=== PATIENT | male | born 1960 | race Native Hawaiian/Other Pacific Islander ===

== ENCOUNTER 2018-11-05 14:43 | Outpatient (CLI) | payer OTHER ==
[2018-11-05] MEDS ORDERED: GABA400C2 PO (22:48)
[2018-11-05] MEDS ORDERED: OXYCODONE30 MG PO (22:49)
== END 2018-11-05 15:00 | disposition short-term general hospital (02) ==
LOC: AMB 14:43
DX: R41.82 Altered mental status, unspecified (principal); M54.89 Other dorsalgia; R50.9 Fever, unspecified
CPT/HCPCS: A0425; A0427

== ENCOUNTER 2018-11-05 15:26 | Inpatient (IN) | payer OTHER ==
[2018-11-05] VITALS (13 sets, daily range): BP systolic 98–160; BP diastolic 62–124; TEMP 99.5–102.8; Ht 175.3 cm; Wt 84.8 kg
[~2018-11-05] VITALS: Ht 175.3 cm; Wt 84.8 kg
[2018-11-05 15:43] LABS: PLATELET COUNT 222 K/uL (142-355)
[2018-11-05 15:46] LABS: POTASSIUM 3.3 mmol/L (3.6-5.2)
[2018-11-05] MEDS ORDERED: GABA400C2 PO (22:48)
[2018-11-05] MEDS ORDERED: OXYCODONE30 MG PO (22:49)
[2018-11-05 23:34] LABS: PLATELET COUNT 198 K/uL (142-355)
[2018-11-05 23:46] LABS: POTASSIUM 3.1 mmol/L (3.6-5.2)
[2018-11-06] VITALS (23 sets, daily range): BP systolic 118–156; BP diastolic 57–91; TEMP 99.3–100.1
[2018-11-06 05:40] LABS: PLATELET COUNT 184 K/uL (142-355)
[2018-11-07] VITALS (8 sets, daily range): BP systolic 125–174; BP diastolic 61–83; TEMP 99–100.3
[2018-11-07 05:30] LABS: PLATELET COUNT 162 K/uL (142-355)
[2018-11-07 06:23] LABS: POTASSIUM 3.5 mmol/L (3.6-5.2)
== END 2018-11-07 09:37 | disposition short-term general hospital (02) | DRG 872 ==
LOC: ED 15:26 → ICU 20:29
PROVIDERS: Emergency Medicine; Family Medicine; ADMIT Internal Medicine
DX: A41.01 Sepsis due to Methicillin susceptible Staphylococcus aureus (principal); L03.113 Cellulitis of right upper limb; D72.828 Other elevated white blood cell count; E87.2 Acidosis; R00.0 Tachycardia, unspecified; R06.82 Tachypnea, not elsewhere classified; K72.90 Hepatic failure, unspecified without coma; M62.82 Rhabdomyolysis; R62.7 Adult failure to thrive; E87.6 Hypokalemia; E86.0 Dehydration; E87.1 Hypo-osmolality and hyponatremia; D64.89 Other specified anemias
CPT/HCPCS: 36600; 51702; 80053; 80307; 80320; 81000; 82140; 82150; 82550; 82553; 82805; 83605; 83690; 84153; 84484; 84550; 85007; 85027; 85651; 87040; 87070; 87077; 87086; 87088; 87185; 87186; 87205; 93005; 94760; 96360; 96361; 96365; 99285; J0696; J1450; J1650; J1956; J2060; J2270; J3370; J3480; Q9963

== ENCOUNTER 2020-01-25 13:53 | Inpatient (IN) | payer OTHER ==
[~2020-01-25] VITALS: Ht 175.3 cm; Wt 73.5 kg
[2020-01-25] VITALS (7 sets, daily range): BP systolic 118–142; BP diastolic 7–83; TEMP 98.8–99.4; Ht 175.3 cm; Wt 73.5 kg
[~2020-01-25 13:53] MED LIST: GABA400C2 PO; OXYCODONE30 MG PO
[2020-01-25] MEDS ORDERED: PRINIVIL5 MG PO (14:19)
[2020-01-25 14:35] LABS: PLATELET COUNT 419 K/uL (142-355)
[2020-01-25 14:38] LABS: POTASSIUM 3.4 mmol/L (3.6-5.2); SODIUM 137 mmol/L (136-145)
[2020-01-25] MEDS ORDERED: LISI20TA11 PO (18:01)
[2020-01-25] MEDS ORDERED: CYCL10TA35 PO (18:04)
[2020-01-26] VITALS: BP 123/61; TEMP 98.6
[2020-01-26 04:00] VITALS: BP 115/67; TEMP 98.9
[2020-01-26 08:00] VITALS: BP 117/62; TEMP 100.3
[2020-01-26 09:49] LABS: PLATELET COUNT 334 K/uL (142-355)
[2020-01-26 12:00] VITALS: BP 101/50; TEMP 99.2
[2020-01-26 16:08] VITALS: BP 130/58; TEMP 99.4
[2020-01-26 20:00] VITALS: BP 126/59; TEMP 102.9
[2020-01-27] VITALS (7 sets, daily range): BP systolic 74–122; BP diastolic 41–62; TEMP 97.7–101.5
[2020-01-27 07:12] LABS: PLATELET COUNT 305 K/uL (142-355)
[2020-01-27 07:32] LABS: POTASSIUM 3.8 mmol/L (3.6-5.2)
[2020-01-28 04:00] VITALS: BP 114/49; TEMP 98.5
[2020-01-28 05:16] LABS: PLATELET COUNT 309 K/uL (142-355)
[2020-01-28 05:30] LABS: POTASSIUM 4.9 mmol/L (3.6-5.2)
[2020-01-28 08:00] VITALS: BP 90/41; TEMP 98.9
[2020-01-28 12:00] VITALS: BP 106/63; TEMP 97.6
[2020-01-28 16:00] VITALS: BP 118/58; TEMP 99.2
[2020-01-28 19:57] VITALS: BP 135/57; BP 99/50; TEMP 98.8
[2020-01-29] VITALS: BP 131/55; TEMP 98.9
[2020-01-29 04:00] VITALS: BP 125/67; TEMP 99
[2020-01-29 05:24] LABS: PLATELET COUNT 323 K/uL (142-355)
[2020-01-29 05:27] LABS: POTASSIUM 4.5 mmol/L (3.6-5.2)
[2020-01-29 08:00] VITALS: BP 114/51; TEMP 99
[2020-01-29 12:00] VITALS: BP 120/58; TEMP 98.3
== END 2020-01-29 16:30 | disposition home or self-care (01) | DRG 313 ==
LOC: ED 13:53 → MED/SURG 15:46
PROVIDERS: Internal Medicine Endocrinology, Diabetes & Metabolism; ADMIT Hospitalist
DX: R07.89 Other chest pain (principal); E87.6 Hypokalemia; G89.4 Chronic pain syndrome; I10 Essential (primary) hypertension; R50.9 Fever, unspecified; K59.09 Other constipation; R31.29 Other microscopic hematuria
CPT/HCPCS: 36415; 80048; 80053; 81000; 82550; 83880; 84484; 85027; 85610; 85730; 87635; 93005; 96365; 96372; 96374; 99284; J1650; J1885; J1956; U0003

== ENCOUNTER 2020-05-22 20:26 | Inpatient (IN) | payer OTHER ==
[2020-05-22] VITALS (10 sets, daily range): BP systolic 80–202; BP diastolic 31–76; TEMP 99–99.2; Ht 177.8 cm; Wt 71.9 kg
[~2020-05-22] VITALS: Ht 177.8 cm; Wt 71.9 kg
[~2020-05-22 20:26] MED LIST changes: +CYCL10TA35 PO; +LISI20TA11 PO; +PRINIVIL5 MG PO
[2020-05-22 20:51] LABS: PLATELET COUNT 643 K/uL (142-355)
[2020-05-22 21:17] LABS: PARTIAL THROMBOPLASTIN TIME 25.8 SECONDS (24.5-33.6)
[2020-05-22 21:21] LABS: POTASSIUM 4.2 mmol/L (3.6-5.2)
[2020-05-23] VITALS (62 sets, daily range): BP systolic 89–176; BP diastolic 40–521; TEMP 97.4–99
[2020-05-23 06:37] LABS: PLATELET COUNT 405 K/uL (142-355)
[2020-05-23 06:58] LABS: POTASSIUM 4.9 mmol/L (3.6-5.2)
[2020-05-23 08:30] LABS: PARTIAL THROMBOPLASTIN TIME 27.4 SECONDS (24.5-33.6)
[2020-05-24] VITALS (73 sets, daily range): BP systolic 100–143; BP diastolic 39–57; TEMP 97.6–99.2
[2020-05-24 06:16] LABS: PLATELET COUNT 531 K/uL (142-355)
[2020-05-24 06:24] LABS: POTASSIUM 4.2 mmol/L (3.6-5.2)
[2020-05-25] VITALS (60 sets, daily range): BP systolic 97–157; BP diastolic 40–81; TEMP 97.9–99.1
[2020-05-25 06:02] LABS: PLATELET COUNT 407 K/uL (142-355)
[2020-05-25 06:17] LABS: POTASSIUM 4.6 mmol/L (3.6-5.2)
[2020-05-26] VITALS (68 sets, daily range): BP systolic 90–155; BP diastolic 36–71; TEMP 97.2–98.4
[2020-05-26 04:45] LABS: PLATELET COUNT 337 K/uL (142-355)
[2020-05-26 05:15] LABS: POTASSIUM 5.2 mmol/L (3.6-5.2)
[2020-05-27] VITALS (29 sets, daily range): BP systolic 93–195; BP diastolic 35–83; TEMP 98–99.2
[2020-05-27 05:20] LABS: PLATELET COUNT 415 K/uL (142-355)
[2020-05-27 05:23] LABS: POTASSIUM 5.5 mmol/L (3.6-5.2)
[2020-05-28] VITALS (55 sets, daily range): BP systolic 92–186; BP diastolic 34–73; TEMP 97.6–98.6
[2020-05-28 06:02] LABS: PLATELET COUNT 329 K/uL (142-355)
[2020-05-28 06:24] LABS: POTASSIUM 4.6 mmol/L (3.6-5.2)
[2020-05-29] VITALS (51 sets, daily range): BP systolic 89–156; BP diastolic 34–68; TEMP 97.6–99.4
[2020-05-29 07:10] LABS: PLATELET COUNT 311 K/uL (142-355)
[2020-05-29 07:33] LABS: POTASSIUM 5.3 mmol/L (3.6-5.2)
[2020-05-30] VITALS (33 sets, daily range): BP systolic 93–1005; BP diastolic 34–62; TEMP 97.4–99.3
[2020-05-30 06:54] LABS: PLATELET COUNT 294 K/uL (142-355)
[2020-05-30 07:15] LABS: POTASSIUM 4.3 mmol/L (3.6-5.2)
[2020-05-31] VITALS (7 sets, daily range): BP systolic 104–147; BP diastolic 40–56; TEMP 97.8–99.1
[2020-05-31 07:15] LABS: POTASSIUM 3.5 mmol/L (3.6-5.2)
[2020-05-31 07:26] LABS: PLATELET COUNT 291 K/uL (142-355)
[2020-06-01] VITALS: BP 111/46; TEMP 98.5
[2020-06-01 03:46] VITALS: BP 131/41; TEMP 98.3
[2020-06-01 07:07] LABS: PLATELET COUNT 247 K/uL (142-355)
[2020-06-01 07:22] LABS: POTASSIUM 4.1 mmol/L (3.6-5.2)
[2020-06-01 08:00] VITALS: BP 128/49; TEMP 97.9
[2020-06-01 12:00] VITALS: BP 115/62; TEMP 98.5
[2020-06-01 16:00] VITALS: BP 122/46; TEMP 98.3
[2020-06-01 20:07] VITALS: BP 122/53; TEMP 97.6
[2020-06-02] VITALS: BP 114/50; TEMP 97.8
[2020-06-02 04:00] VITALS: BP 127/46; TEMP 98.2
[2020-06-02 05:27] LABS: PLATELET COUNT 220 K/uL (142-355)
[2020-06-02 05:30] LABS: POTASSIUM 4.5 mmol/L (3.6-5.2)
[2020-06-02 08:00] VITALS: BP 128/52; TEMP 98.8
[2020-06-02 12:00] VITALS: BP 126/48; TEMP 97.9
[2020-06-02 16:00] VITALS: BP 106/75; TEMP 98.1
== END 2020-06-02 18:10 | disposition short-term general hospital (02) | DRG 207 ==
LOC: ED 20:38 → ICU 22:00 → UNDODEPER 05-23 23:05 → PCU 05-24 14:43 → ICU 05-26 16:53 → MED/SURG 05-31 02:18
PROVIDERS: Internal Medicine; ADMIT Hospitalist; ATTEND Internal Medicine Endocrinology, Diabetes & Metabolism
PROC: 5A1955Z Respiratory Ventilation, Greater than 96 Consecutive Hours (ICD-10-PCS; principal; 2020-05-22)
PROC: 0BH17EZ Insertion of Endotracheal Airway into Trachea, Via Natural or Artificial Opening (ICD-10-PCS; 2020-05-22)
PROC: 30233N1 Transfusion of Nonautologous Red Blood Cells into Peripheral Vein, Percutaneous Approach (ICD-10-PCS; 2020-05-29)
PROC: 30233N1 Transfusion of Nonautologous Red Blood Cells into Peripheral Vein, Percutaneous Approach (ICD-10-PCS; 2020-05-30)
DX: J96.01 Acute respiratory failure with hypoxia (principal); A41.89 Other specified sepsis; I21.4 Non-ST elevation (NSTEMI) myocardial infarction; D64.89 Other specified anemias; J15.211 Pneumonia due to Methicillin susceptible Staphylococcus aureus
CPT/HCPCS: 36415; 36600; 51702; 80053; 82550; 82607; 82728; 82746; 82805; 83540; 83550; 83605; 83880; 84478; 84484; 85007; 85014; 85018; 85027; 85610; 85730; 86850; 86900; 86901; 86922; 87040; 87070; 87077; 87185; 87186; 87205; 87502; 87635; 87651; 90732; 93005; 94002; 94003; 94640; 94664; 94760; 96360; 96361; 96365; 96368; 96375; 99285; C1768; J0132; J0330; J0456; J1100; J1650; J1815; J1940; J1956; J2020; J2060; J2250; J2405; J2704; J3490; P9016; U0003

== ENCOUNTER 2021-02-19 14:30 | Observation (INO) | payer OTHER ==
[2021-02-19] VITALS (10 sets, daily range): BP systolic 94–121; BP diastolic 56–91; TEMP 97.5–98.2; Ht 172.7 cm; Wt 75.4 kg
[~2021-02-19] VITALS: Ht 172.7 cm; Wt 75.4 kg
--- NOTE | 2021-02-19 00:38 | NUR ---
PT AWAKE WATCHING TV WITH NO ACUTE DISTRESS NOTED, REPS RATE NONLABORED, ON ROOM AIR, URINAL WITHIN PT'S REACH, TELEMETRY IN USE WITH TACHYCARDIA NOTED,WILL MONITOR CLOSELY.
--- NOTE | 2021-02-19 00:39 | NUR ---
PREVIOUS NOTE CHARTED WRONG DATE AND TIME.... CORRECT DATE IS AT 0038.
[2021-02-19 15:07] LABS: PLATELET COUNT 346 K/uL (142-355)
[2021-02-19 15:09] LABS: POTASSIUM 4.8 mmol/L (3.6-5.2); SODIUM 138 mmol/L (136-145)
[2021-02-19 15:16] LABS: PARTIAL THROMBOPLASTIN TIME 25.6 SECONDS (24.5-33.6)
[2021-02-19] MEDS ORDERED: LIPITOR20 MG PO (19:14)
[2021-02-19] MEDS ORDERED: LISI5TAB10 PO (19:14)
[2021-02-19] MEDS ORDERED: METO100T37 PO (19:16)
[2021-02-19] MEDS ORDERED: AMOXICILLIN250 M2 PO (19:18)
[2021-02-19] MEDS ORDERED: ASPIRIN 81 LOW81 MG PO (19:20)
--- NOTE | 2021-02-19 21:55 | NUR ---
PT AWAKE WATCHING TV WITH NO S/S OF DISTRESS NOTED, TELEMETRY IN USE WITH TACHYCARDIA NOTED 120-140 PT STATES HE FEELS FINE, RESP RATE NONLABORED, ON ROOM AIR, 20G IV LOCK INTACT TO R AC AND IV 20G INTACT TO R HAND WITH NS AT 125ML/HR. GAVE NIGHTLY MEDICATIONS WITH NO PROBLEMS, PT VERY TALKATIVE WITH STAFF AND KIDDING AROUND TELLING JOKES. WILL MONITOR, RAILS UP, BED IN LOW POSITION, CALL LIGHT IN REACH.
[2021-02-20] VITALS: BP 149/74; TEMP 98.2
--- NOTE | 2021-02-20 01:13 | NUR ---
RESTING ON L SIDE IN BED WITH EYES CLOSED, NO S/S OF PAIN OR DISTRESS NOTED, RESP RATE NONLABORED, TELEMETRY IN USE WITH HEART RATE OF STILL WAITING ON PHARM-D TO PROFILE DOSE OF CARDIZEM AND AMOXICILLIN THAT WAS ORDERED AND FAXED AROUND 0025, BOTH IV SITES INTACT AND NS INFUSING AT 125ML/HR, PT AROUSES BRIEFLY AND DENIES ANY NEEDS, RAILS UP, BED IN LOW POSITION.
--- NOTE | 2021-02-20 01:45 | NUR ---
PT RESTING ON L SIDE WITH EYES CLOSED, AROUSES AND DENIES ANY PROBLEMS AT THIS TIME, RESP RATE NONLABORED, IV SITES INTACT AND NS INFUSING AT 125ML/HR. GAVE CARDIZEM 120MG PO AND AMOXICILLIN 500 MG PO BOTH PER NEW ORDER. URINAL EMPTIED AT THIS TIME WITH 625ML CLEAR LIGHT YELLOW URINE NOTED. TELEMETRY IN USE WITH TACHYCARDIA NOTED, WILL MONITOR,RAILS UP, BED IN LOW POSITION, CALL LIGHT IN REACH.
--- NOTE | 2021-02-20 03:00 | NUR ---
PT RESTING IN BED WITH EYES CLOSED ON HIS SIDE WITH NO S/S OF PAIN OR DISTRESS NOTED, IV SITES INTACT AND NS INFUSING AT 125ML/HR, ON ROOM AIR, NOTE HEART RATE HAS NOW DECREASED TO 100, WILL MONITOR, RAILS UP, BED IN LOW POSIITON, CALL LIGHT IN REACH.
[2021-02-20 04:00] VITALS: BP 105/72; TEMP 97.7
--- NOTE | 2021-02-20 05:00 | NUR ---
CALL LIGHT ANSWERED PT NEEDS HIS URINAL EMPTIED. PROPOSAL CONSULTANT IN ROOM PT STATE THAT HE FEELS DIZZY FOR A FEW SECONDS AND THEN FEELS OKAY AGAIN. STATES THIS JUST STARTED. NO S/S OF DISTRESS BUT NOTE ON TELEMETRY PT'S HEART RATE GOES INTO BRADYCARDIA 30-40s THEN RATE GOES BACK UP TO 60-70s. PT DENIES ANY OTHER S/S AND IS ALERT AND ORIENTED EATING A SNACK OF CEREAL. PT TALKATIVE WITH PROPOSAL CONSULTANT. CONTACTED DR. CAMPBELL IN ER SHOWED HIM TELEMETRY STRIP AND CURRENT PT STATUS. NEW VERBAL ORDER FOR 1 LITER BOLUS OF NS AND HOLD B/P MEDS. ORDER R&V DR. CAMPBELL/LIN PRITCHARD RN.
--- NOTE | 2021-02-20 05:06 | NUR ---
CURRENT BAG OF NS INCREASED TO 999ML/HR PER NEW ORDER FOR 1 LITER BOLUS. PT REMAINS AWAKE AND ORIENTED STILL GETS DIZZY AT TIMES, WILL CONTINUE TO MONITOR CLOSELY, RAILS UP, BED IN LOW POSITION, CALL LIGHT IN REACH.
--- NOTE | 2021-02-20 06:10 | NUR ---
PT AWAKE SITTING UP ON SIDE OF BED EATING A SNACK WITH NO DISTRESS NOTED, DENIES ANY NEEDS OR PROBLEMS AT THIS TIME, STATES HIS HEADACHE HAS DECREASED TO A 4 ON SCALE, REMAINS GLENDY WITH NO MORE DIZZINESS PT STATES. WILL MONITOR RAILS UP, BED IN LOW POSITION, IV SITES INTACT NS ONGOING AT 125.
[2021-02-20 08:00] VITALS: BP 92/57; TEMP 98.1
--- NOTE | 2021-02-20 11:25 | NUR ---
PATIENT AGITATED AND REPORTS HE HAS NOT RECEIVED HIS ROXICODONES IN OVER 24 HOURS AND DEMANDING TO RECEIVE SAME OR LEAVE AMA. DR. LOZANO NOTIFIED OF SAME, NO NEW ORDERS RECEIVED AT THIS TIME.
[2021-02-20 12:00] VITALS: BP 122/96; TEMP 98
--- NOTE | 2021-02-20 15:45 | NUR ---
PATIENT CONTINUES TO THREATEN TO LEAVE AMA IF HE DOES NOT RECEIVE HIS ROXICODONES, REPORTED SAME TO DR. LOZANO. PHYSICIAN ADVISED PATIENT IS UNABLE TO RECEIVE HOME MEDICATION ROXICODONES DUE TO LOW BLOOD PRESSURE AND LOW HEART RATE. DR. LOZANO DISCUSSED SAME WITH PATIENT.
--- NOTE | 2021-02-20 16:05 | NUR ---
PATIENT REFUSED LOVENOX SCHEDULED FOR 1500 AND 1600 VITALS AND CONTINUES TO DEMAND TO RECEIVE HOME MEDICATION ROXICODONES OR HE WILL LEAVE AMA, DR. LOZANO MADE AWARE OF SAME.
--- NOTE | 2021-02-20 16:20 | NUR ---
RECEIVED NEW ORDERS TO DISCHARGE PATIENT HOME. PHARMACY PROVIDED PATIENT WITH METOPROLOL 25MG X30 TABS WITH INSTRUCTIONS TO TAKE 1/2 TABLET IN THE MORNING AND 1/2 AT NIGHT BY PHYSICIAN.
[2021-02-20] MEDS ORDERED: METO-837 PO (17:19)
--- NOTE | 2021-02-20 17:20 | NUR ---
PROVIDED PATIENT WITH HOME MEDICATIONS AND PATIENT SIGNED ACKNOWLEDGMENT OF SAME, SIGNED ACKNOWLEDGMENT PLACED IN CHART. INSTRUCTED PATIENT TO ATTEND ALL PREVIOUSLY SCHEDULED APPOINTMENT BY PATIENT, TAKE 1/2 TABLET OF METOPROLOL 25MG IN THE MORNING AND 1/2 TAB AT NIGHT. PATIETN V/O UNDERSTANDING. IV'S D/C'D WITH TIP IN TACT AND TELEMETRY REMOVED AND PROVIDED TO TRAINING DEVELOPMENT MANAGER. PATIENT D/C'D FROM MED SURG DEPARTMENT AND TAKEN TO POV VIA WHEELCHAIR WITH DRIVING POV. NAD NOTED WITH PATIENT. PATIENT DENIES ANY PAIN, PALPITATIONS, OR LIGHTHEADEDNESS AT THIS TIME. PATIENT AMBULATED TO POV WITHOUT DIFFICULTY, GAIT IS STEADY.
== END 2021-02-20 17:30 | disposition home or self-care (01) ==
LOC: ED 14:30 → MED/SURG 16:30
PROVIDERS: Hospitalist; ADMIT Internal Medicine; ATTEND Internal Medicine
DX: I48.92 Unspecified atrial flutter (principal); R00.0 Tachycardia, unspecified; G89.4 Chronic pain syndrome; J44.9 Chronic obstructive pulmonary disease, unspecified; E78.49 Other hyperlipidemia; I10 Essential (primary) hypertension
CPT/HCPCS: 36415; 80053; 80320; 82550; 83880; 84443; 84484; 85027; 85379; 85610; 85730; 87635; 93005; 96374; 96376; 99220; 99284; G0378; J1650; J1940; J3490; Q9963; U0003

== ENCOUNTER 2021-04-10 10:18 | Emergency (ER) | payer OTHER ==
[~2021-04-10] VITALS: Ht 175.3 cm; Wt 72.6 kg
[~2021-04-10 10:18] MED LIST changes: +AMOXICILLIN250 M2 PO; +ASPIRIN 81 LOW81 MG PO; +LIPITOR20 MG PO; +LISI5TAB10 PO; +METO-837 PO; +METO100T37 PO
[2021-04-10 12:04] LABS: PLATELET COUNT 290 K/uL (142-355)
[2021-04-10 12:22] LABS: POTASSIUM 4.8 mmol/L (3.6-5.2)
[2021-04-10 12:34] LABS: PARTIAL THROMBOPLASTIN TIME 28.5 SECONDS (24.5-33.6)
[2021-04-10 13:55] VITALS: BP 139/62; TEMP 98.5
== END 2021-04-10 13:55 | disposition home or self-care (01) ==
LOC: ED 10:18
PROVIDERS: Emergency Medicine
DX: R05.8 Other specified cough (principal); R09.89 Other specified symptoms and signs involving the circulatory and respiratory systems; R79.89 Other specified abnormal findings of blood chemistry
CPT/HCPCS: 36415; 80053; 83605; 83880; 84484; 85027; 85379; 85610; 85730; 87040; 87077; 87185; 87186; 87205; 93005; 99284